=== PATIENT | male | born 1930 | race Caucasian/White ===

== ENCOUNTER 2019-03-31 11:28 | Emergency (ER) | payer OTHER ==
[~2019-03-31] VITALS: Ht 167.6 cm; Wt 63.5 kg
[2019-03-31 11:32] VITALS: BP_SYST 134
--- NOTE | 2019-03-31 11:40 | NUR ---
Patient BIB BLS to ER c/O dizziness. Patient A&Ox4, afebrile, skin pink and warm, denies pain, Nausea present, emesisi x1 today, denies diarrhea. Patient states he has dizziness x2 days. Patient states he unable to tolerate raising head with out emesis. Patient denies other health hx. family memebers report patient eating spinich that may have been "recalled".
--- NOTE | 2019-03-31 11:42 | NUR ---
JEANNA Hylton at bedside examining patient.
[2019-03-31] MEDS ORDERED: METOCLOPRAMIDE HCL 10 MG/2 ML VIAL IVP ONE (11:45)
[2019-03-31] MEDS ORDERED: NACL 0.9% 1,000 ML IV ONE (11:45)
[2019-03-31] MEDS ORDERED: MECLIZINE HCL 25 MG TABLET (ANITVERT) PO ONE ×2 (11:45→12:45)
--- NOTE | 2019-03-31 11:50 | NUR ---
# 20 gauge angiocath placed to left arm. Use of asceptic technique. Opsite placed over site. Blood return noted. Blood for lab drawn from site. Flushed with 10 cc of normal saline. No evidence of infiltration noted. Patient tolerated well. Medicated per MD orders. IVF infusing with no s/s of infiltration at this time. Will cont to monitor
[2019-03-31] MEDS ORDERED: ONDANSETRON HCL 4 MG/2 ML VIAL IVP ONE (12:45)
[2019-03-31 12:58] LABS: BASOPHILS % (AUTO) 0.3 % (0.0-2.0); EOSINOPHILS % (AUTO) 0.2 % (0.0-4.0); HEMATOCRIT 39.5 % (36-54); HEMOGLOBIN 13.4 g/dL (14.0-18.0); LYMPHOCYTES # (AUTO) 0.8 K/uL (1.0-5.5); LYMPHOCYTES % (AUTO) 10.5 % (20.5-51.5); MEAN CORPUSCULAR HEMOGLOBIN 31 pg (27-31); MEAN CORPUSCULAR HGB CONC 34 % (32-36); MEAN CORPUSCULAR VOLUME 93 fL (79.0-98.0); MONOCYTES # (AUTO) 0.3 K/uL (0.0-1.0); MONOCYTES % (AUTO) 4.6 % (1.7-9.3); NEUTROPHILS # (AUTO) 6.3 K/uL (1.8-7.7); NEUTROPHILS % (AUTO) 84.4 % (40.0-70.0); PLATELET COUNT (AUTO) 236 K/uL (130-430); RED BLOOD CELL COUNT(AUTO) 4.26 MIL/uL (4.2-6.2); RED CELL DISTRIBUTION WIDTH 14.1 % (9.0-15.0); WHITE BLOOD COUNT (AUTO) 7.4 K/uL (4.8-10.8)
--- NOTE | 2019-03-31 12:59 | NUR ---
Report to Amalia CORONADO
[2019-03-31 13:15] LABS: ANION GAP 6 (5-15); CALCIUM 8.2 mg/dL (8.4-11.0); CHLORIDE 101 mmol/L (98-107); CREATININE 0.53 mg/dL (0.55-1.30); GLUCOSE 122 mg/dL (70-99); POTASSIUM 4.2 mmol/L (3.5-5.1); SODIUM SERUM 134 mmol/L (136-145); UREA NITROGEN, BLOOD 14 mg/dL (8-21)
[2019-03-31 13:21] LABS: ALANINE AMINOTRANSFERASE 18 U/L (12-78); ALBUMIN 3.1 g/dL (3.4-4.8); ASPARTATE AMINOTRANSFERASE 18 U/L (10-37); TOTAL BILIRUBIN 0.5 mg/dL (0.0-1.0)
--- NOTE | 2019-03-31 13:35 | NUR ---
Report from Amalia COROANDO
--- NOTE | 2019-03-31 14:15 | NUR ---
PAtient given PO Challenge. 8 oz. broth with crackers
--- NOTE | 2019-03-31 15:18 | NUR ---
Patient and family given written and verbal discharge instructions and verbalizes understanding. ER MD discussed with patient the results and treatment provided. Patient in stable condition. ID arm band removed. IV catheter removed intact and dressing applied, no active bleeding. Rx of Meclizine and Zofran given. Patient and family educated on pain management and to follow up with PMD. Pain Scale 0/10. Opportunity for questions provided and answered. Medication side effect fact sheet provided.
--- NOTE | 2019-03-31 15:18 | NUR ---
Non skid socks provided and assisted to car via w/c family and patient denied further questions or concerns
[2019-03-31 15:20] VITALS: BP_SYST 135
== END 2019-03-31 15:18 | disposition home or self-care (01) ==
LOC: SED 11:28
DX: R42 Dizziness and giddiness (principal); R11.2 Nausea with vomiting, unspecified
CPT/HCPCS: 36415; 80053; 85025; 93005; 96361; 96374; 96375; 99284; J2405; J2765; J7030; J8597